=== PATIENT | female | born 1970 | race Caucasian/White ===

== ENCOUNTER → 2019-09-13 14:07 | Outpatient (BNVA) | payer OTHER, SELFPAY | PROVIDERS: Family Provider Internal Medicine; Referring Provider Internal Medicine; Visit Provider Podiatrist Foot & Ankle Surgery | DX: M79.671 Pain in right foot (principal); M79.672 Pain in left foot | CPT/HCPCS: 73630 ==

== ENCOUNTER → 2019-11-06 14:06 | Outpatient (BNVA) | payer OTHER, SELFPAY | PROVIDERS: Family Provider Internal Medicine; PCP Internal Medicine; Visit Provider Internal Medicine Rheumatology | DX: M19.90 Unspecified osteoarthritis, unspecified site (principal); R60.9 Edema, unspecified; Z79.899 Other long term (current) drug therapy; M54.9 Dorsalgia, unspecified; S82.891A Other fracture of right lower leg, initial encounter for closed fracture; X58.XXXA Exposure to other specified factors, initial encounter | CPT/HCPCS: 80076; 82306; 82565; 85025; 85651; 86038; 86140; 86431; 86480; 86704; 86803; 87340; 99204 ==

== ENCOUNTER 2019-11-07 15:06 | Outpatient (CLI) | payer OTHER, SELFPAY ==
--- NOTE | 2019-11-07 15:12 | XRR_ITS ---
PROCEDURE INFORMATION: Exam: XR Lumbosacral Spine, 2 or 3 Views Exam date and time: 11/07/2019 3:25 PM Age: 49 years old Clinical indication: Condition or disease; Other: Inflammatory arthritis; Additional info: Back pain TECHNIQUE: Imaging protocol: XR of the lumbosacral spine, 2 or 3 views. COMPARISON: [facility] Sacrum and Coccyx 12/18/2014 9:10 AM FINDINGS: Vertebrae: Normal. No acute fracture. Normal alignment. Soft tissues: Unremarkable. XR/XR lumbar spine 2-3V* [id number] IMPRESSION: No acute findings.
--- NOTE | 2019-11-07 15:12 | XRR_ITS ---
PROCEDURE INFORMATION: Exam: XR Right Knee Exam date and time: 11/07/2019 3:25 PM Age: 49 years old Clinical indication: Condition or disease; Arthritis; Other: Inflammatory; Bilateral; Additional info: Inflammatory arthritis TECHNIQUE: Imaging protocol: XR Right knee. Views: 3 views. COMPARISON: No relevant prior studies available. FINDINGS: Bones/joints: Negative for acute bony abnormality Soft tissues: Unremarkable XR/XR knee RT 3V* [id number] IMPRESSION: No acute findings.
--- NOTE | 2019-11-07 15:12 | XRR_ITS ---
PROCEDURE INFORMATION: Exam: XR Left Knee Exam date and time: 11/07/2019 3:25 PM Age: 49 years old Clinical indication: Condition or disease; Arthritis; Other: Inflammatory; Bilateral; Additional info: Inflammatory arthritis TECHNIQUE: Imaging protocol: XR Left knee. Views: 3 views. COMPARISON: No relevant prior studies available. FINDINGS: Bones/joints: Negative for acute bony abnormality Soft tissues: Normal. XR/XR knee LT 3V* [id number] IMPRESSION: No acute findings.
--- NOTE | 2019-11-07 15:12 | XRR_ITS ---
PROCEDURE INFORMATION: Exam: XR Left Hand Exam date and time: 11/07/2019 3:25 PM Age: 49 years old Clinical indication: Condition or disease; Arthritis; Other: Inflammatory; Hand; Bilateral; Additional info: Inflammatory arthritis TECHNIQUE: Imaging protocol: XR Left hand. Views: 3 or more views. COMPARISON: No relevant prior studies available. FINDINGS: Bones/joints: Negative for acute bony abnormality Soft tissues: Normal. XR/XR hand LT min 3V* [id number] IMPRESSION: No acute findings.
--- NOTE | 2019-11-07 15:12 | XRR_ITS ---
PROCEDURE INFORMATION: Exam: XR Right Hand Exam date and time: 11/07/2019 3:25 PM Age: 49 years old Clinical indication: Condition or disease; Arthritis; Other: Inflammatory; Hand; Bilateral; Additional info: Inflammatory arthritis TECHNIQUE: Imaging protocol: XR Right hand. Views: 3 or more views. COMPARISON: No relevant prior studies available. FINDINGS: Bones/joints: Negative for acute bony abnormality Soft tissues: Normal. XR/XR hand RT min 3V* [id number] IMPRESSION: No acute findings.
== END 2019-11-07 15:07 | disposition home or self-care (01) ==
LOC: RADWPI 15:10
PROVIDERS: Family Provider Internal Medicine; PCP Internal Medicine; Visit Provider Internal Medicine Rheumatology
DX: M19.90 Unspecified osteoarthritis, unspecified site (principal); M54.5 Low back pain
CPT/HCPCS: 72100; 73130; 73562

== ENCOUNTER → 2020-01-03 15:51 | Outpatient (BNVA) | payer OTHER, SELFPAY | PROVIDERS: Family Provider Internal Medicine; PCP Internal Medicine; Visit Provider Internal Medicine Rheumatology | DX: M06.041 Rheumatoid arthritis without rheumatoid factor, right hand (principal); M06.042 Rheumatoid arthritis without rheumatoid factor, left hand; Z79.899 Other long term (current) drug therapy; R60.9 Edema, unspecified; M85.80 Other specified disorders of bone density and structure, unspecified site; M54.5 Low back pain; G89.29 Other chronic pain | CPT/HCPCS: 99214 ==

== ENCOUNTER → 2020-01-26 10:03 | Outpatient (BNVA) | payer OTHER, SELFPAY | PROVIDERS: Family Provider Internal Medicine; PCP Internal Medicine; Visit Provider Internal Medicine | DX: M06.041 Rheumatoid arthritis without rheumatoid factor, right hand (principal); M06.042 Rheumatoid arthritis without rheumatoid factor, left hand; Z79.899 Other long term (current) drug therapy | CPT/HCPCS: 36415; 80076; 82565; 85025; 85651; 86140; 86235 ==

== ENCOUNTER → 2020-01-30 10:36 | Outpatient (BNVA) | payer OTHER, SELFPAY | PROVIDERS: Family Provider Internal Medicine; PCP Internal Medicine; Referring Provider Internal Medicine Rheumatology; Visit Provider Anesthesiology Pain Medicine | DX: G89.29 Other chronic pain (principal); M79.18 Myalgia, other site; M54.18 Radiculopathy, sacral and sacrococcygeal region; M54.16 Radiculopathy, lumbar region; M25.561 Pain in right knee; M25.562 Pain in left knee; M54.9 Dorsalgia, unspecified; M19.90 Unspecified osteoarthritis, unspecified site; S82.891A Other fracture of right lower leg, initial encounter for closed fracture; X58.XXXA Exposure to other specified factors, initial encounter | CPT/HCPCS: 20553; 99203; 99204; J1030; J3490 ==

== ENCOUNTER 2020-02-13 16:32 | Outpatient (CLI) | payer OTHER, SELFPAY ==
--- NOTE | 2020-02-13 17:12 | MR_ITS ---
WS: [id number] MRI PELVIS without CONTRAST. COMPARISON: None Multiplanar, multisequence imaging is performed without contrast. History: Chronic low back and sacral pain. Signal within the sacrum is normal. There is normal sacrococcygeal alignment. No bone destruction or marrow edema. The overlying soft tissue is normal. No marrow edema along the SI joints. No erosions a re identified. No fusion at the SI joints. No significant narrowing of the hip joints. Soft tissues a re symmetric bilaterally. No muscle atrophy. There is no free fluid in the pelvis. MR/MR pelvis wo con* [id number] IMPRESSION: 1. No significant sacral or SI joint abnormalities. 2. No fracture or marrow edema.
--- NOTE | 2020-02-13 17:30 | MR_ITS ---
WS: [id number] MRI LUMBAR SPINE NONCONTRAST HISTORY: M54.16 Radiculopathy, lumbar region COMPARISON: None available. TECHNIQUE: Sagittal and axial multisequence imaging is submitted. Normal posterior lumbar alignment. No marrow edema or fracture. Very mild degenerative disc disease and desiccation in the lower thoracic and lumbar spine. No signif icant loss of height. Conus terminates normally at L1-2 disc level. L1-L2: Normal. L2-L3: Normal. L3-L4: Mild facet joint arthritis. No significant stenosis. No disc protrusion. L4-L5: Moderate bilateral facet joint arthritis. No significant stenosis. L5-S1: Moderate bilateral facet joint arthritis, LEFT greater than RIGHT. Mild broad-based disc bulgi ng centrally slightly asymmetric to the LEFT. No significant stenosis. MR/MR lumbar spine wo con* [id number] IMPRESSION: 1. Mild to moderate bilateral facet joint arthritis, most significant at L4-5 and L5-S1. 2. No significant central or foraminal stenosis.
== END 2020-02-13 16:33 | disposition home or self-care (01) ==
LOC: RADSHAW 16:37
PROVIDERS: PCP Internal Medicine; Visit Provider Anesthesiology Pain Medicine
DX: M54.16 Radiculopathy, lumbar region (principal); M54.18 Radiculopathy, sacral and sacrococcygeal region; M13.88 Other specified arthritis, other site; M54.5 Low back pain
CPT/HCPCS: 72148; 72195

== ENCOUNTER → 2020-02-22 10:27 | Outpatient (BNVA) | payer OTHER, SELFPAY | PROVIDERS: PCP Internal Medicine; Visit Provider Anesthesiology Pain Medicine | DX: G89.29 Other chronic pain (principal); M54.16 Radiculopathy, lumbar region; M54.9 Dorsalgia, unspecified; M25.561 Pain in right knee; M25.562 Pain in left knee; S82.891A Other fracture of right lower leg, initial encounter for closed fracture; X58.XXXA Exposure to other specified factors, initial encounter; M19.90 Unspecified osteoarthritis, unspecified site | CPT/HCPCS: 99213; 99214 ==

== ENCOUNTER → 2020-03-28 13:02 | Outpatient (BNVA) | payer OTHER, SELFPAY | PROVIDERS: PCP Internal Medicine; Visit Provider Internal Medicine Rheumatology | DX: M06.041 Rheumatoid arthritis without rheumatoid factor, right hand (principal); M06.042 Rheumatoid arthritis without rheumatoid factor, left hand; Z13.820 Encounter for screening for osteoporosis; M85.80 Other specified disorders of bone density and structure, unspecified site; M54.5 Low back pain; G89.29 Other chronic pain; M54.16 Radiculopathy, lumbar region; Z79.899 Other long term (current) drug therapy | CPT/HCPCS: 99214 ==

== ENCOUNTER 2020-04-09 15:46 | Outpatient (CLI) | payer OTHER, SELFPAY ==
--- NOTE | 2020-04-09 08:34 | XR_ITS ---
WS: [id number] SCREENING DEXA SCAN SCOUPY CLINICAL INFORMATION: M85.80 - Other specified disorders of bone density and struc COMPARISON: None. FINDINGS: The L1-L4 bone mineral density measures 1.0. This corresponds to a T score score of -1.1 and Z score of -1.7. Left femoral neck bone mineral density measures 1.0. This corresponds to a T score of 0.0 and Z score of -0.3. Right femoral neck bone mineral density measures 1.1. This corresponds to a T score 0.4of and Z score of 0.1. Mean femoral neck bone mineral density measures 1.0. This corresponds to a T score of 0.2 and Z score of -0.1. XR/XR DEXA axial skeleton* [id number] IMPRESSION: Osteopenia of the lumbar spine. Normal bone mineralization in the femoral necks . Patient's FRAX calculated 10 year probability for major osteoporotic fracture i s 9.4 % and osteoporotic hip fracture is 0.5%.
== END 2020-04-09 15:47 | disposition home or self-care (01) ==
LOC: RADWPI 15:48
PROVIDERS: PCP Internal Medicine; Visit Provider Internal Medicine Rheumatology
DX: M85.80 Other specified disorders of bone density and structure, unspecified site (principal)
CPT/HCPCS: 77080

== ENCOUNTER → 2020-05-01 14:58 | Outpatient (BNVA) | payer OTHER, SELFPAY | PROVIDERS: PCP Internal Medicine; Visit Provider Internal Medicine Rheumatology | DX: Z79.899 Other long term (current) drug therapy (principal) | CPT/HCPCS: 36415; 80076; 82565; 85025; 85651; 86140 ==

== ENCOUNTER → 2020-05-19 12:23 | Outpatient (BNVA) | payer OTHER, SELFPAY | PROVIDERS: PCP Internal Medicine; Visit Provider Nurse Practitioner | DX: Z20.822 Contact with and (suspected) exposure to COVID-19 (principal); R05 Cough | CPT/HCPCS: 87400; 87635 ==

== ENCOUNTER → 2020-08-20 14:58 | Outpatient (BNVA) | payer OTHER, SELFPAY | PROVIDERS: Visit Provider Internal Medicine Rheumatology | DX: M06.041 Rheumatoid arthritis without rheumatoid factor, right hand (principal); M06.042 Rheumatoid arthritis without rheumatoid factor, left hand; Z79.899 Other long term (current) drug therapy; G89.29 Other chronic pain; M54.5 Low back pain | CPT/HCPCS: 99214 ==

== ENCOUNTER → 2020-11-21 15:30 | Outpatient (BNVA) | payer OTHER, SELFPAY | PROVIDERS: PCP Clinical Nurse Specialist Adult Health; Visit Provider Internal Medicine Rheumatology | DX: M06.041 Rheumatoid arthritis without rheumatoid factor, right hand (principal); M06.042 Rheumatoid arthritis without rheumatoid factor, left hand; Z79.899 Other long term (current) drug therapy; M54.5 Low back pain; G89.29 Other chronic pain; Z71.89 Other specified counseling | CPT/HCPCS: 99214 ==

== ENCOUNTER → 2021-01-06 14:49 | Outpatient (BNVA) | payer OTHER, SELFPAY | PROVIDERS: PCP Clinical Nurse Specialist Adult Health; Visit Provider Internal Medicine | DX: E11.9 Type 2 diabetes mellitus without complications (principal); E03.9 Hypothyroidism, unspecified | CPT/HCPCS: 99204 ==

== ENCOUNTER → 2021-05-01 08:40 | Outpatient (BNVA) | payer OTHER, SELFPAY | PROVIDERS: PCP Clinical Nurse Specialist Adult Health; Visit Provider Family Medicine | DX: Z20.828 Contact with and (suspected) exposure to other viral communicable diseases (principal) | CPT/HCPCS: 87635 ==

== ENCOUNTER → 2021-09-08 14:48 | Outpatient (BNVA) | payer OTHER, SELFPAY | PROVIDERS: Visit Provider Family Medicine | DX: Z20.822 Contact with and (suspected) exposure to COVID-19 (principal) | CPT/HCPCS: 87635 ==

== ENCOUNTER 2021-10-16 09:50 | Outpatient (CLI) | payer OTHER, SELFPAY ==
[2021-10-16 11:14] LABS: Basophils # 0.1 10^3/uL (0.0-0.1); Basophils % 1.1 %; Eosinophils # 0.2 10^3/uL (0.0-0.8); Eosinophils % 2.6 %; Hematocrit 41.3 % (37.0-47.0); Hemoglobin 13.8 g/dL (11.5-15.3); Lymphocytes # 2.3 10^3/uL (0.8-4.8); Mean Corpuscular HGB Conc 33.4 g/dL (30.0-36.0); Mean Corpuscular Hemoglobin 28.9 pg (28.0-34.0); Mean Corpuscular Volume 86.4 fl (81-99); Mean Platelet Volume 9.4 fL (7.4-10.4); Monocytes # 0.8 10^3/uL (0.2-0.9); Monocytes % 10.3 %; Neutrophils # 4.08 10^3/uL (1.8-7.7); Neutrophils % 54.7 %; Nucleated Red Blood Cells % 0 %; Platelet Count 328 10^3/cmm (130-400); Red Blood Count 4.78 10^6/uL (4.1-5.3); Red Cell Distribution Width 12.9 % (12.1-15.1); White Blood Count 7.5 10^3/uL (4.0-10.0)
[2021-10-16 11:28] LABS: Alanine Aminotransferase 29 U/L (0-33); Albumin Level 4.7 g/dL (3.5-5.2); Alkaline Phosphatase 89 IU/L (35-105); Anion Gap 16.8 (5-19); Aspartate Amino Transferase 33 U/L (0-32); Blood Urea Nitrogen 15 mg/dL (6-20); C Reactive Protein 34.2 mg/L (0.0-4.9); Calcium 10.7 mg/dL (8.5-10.5); Carbon Dioxide 26 mmol/L (22-29); Chloride 100 mmol/L (98-107); Globulin 3.3 g/dL (1.3-4.6); Glomerular Filtration Rate 87.5 mL/min (90-130); Glucose 111 mg/dL (65-115); Osmolality Calculated 288 mOsm/kg (285-295); Potassium 4.8 mmol/L (3.5-5.1); Sodium 138 mmol/L (136-145); Total Bilirubin 0.3 mg/dL (0.15-1.2)
[2021-10-16 11:45] LABS: Hepatitis A Antibody IgM Non-Reactive (Nonreactive); Hepatitis B Core IgM Non-Reactive (Nonreactive); Hepatitis B Surface Antigen Non-Reactive (Nonreactive); Hepatitis C Virus Antibody Non-Reactive (Nonreactive)
[2021-10-17 13:12] LABS: Erythrocyte Sedimentation Rate 17 mm/hr (0-15)
== END 2021-10-16 09:51 | disposition home or self-care (01) ==
LOC: LAB 09:54
PROVIDERS: Visit Provider Clinical Nurse Specialist Adult Health
DX: A09 Infectious gastroenteritis and colitis, unspecified (principal)
CPT/HCPCS: 80053; 80074; 85025; 85651; 86140

== ENCOUNTER → 2022-01-20 10:07 | Outpatient (BNVA) | payer OTHER, SELFPAY | PROVIDERS: PCP Clinical Nurse Specialist Adult Health; Visit Provider Clinical Nurse Specialist Adult Health | DX: M06.041 Rheumatoid arthritis without rheumatoid factor, right hand (principal); M06.042 Rheumatoid arthritis without rheumatoid factor, left hand; Z79.899 Other long term (current) drug therapy | CPT/HCPCS: 80076; 82565; 85025; 86140 ==

== ENCOUNTER → 2022-03-23 16:07 | Outpatient (BNVA) | payer OTHER, SELFPAY | PROVIDERS: PCP Clinical Nurse Specialist Adult Health; Visit Provider Internal Medicine Rheumatology | DX: M06.041 Rheumatoid arthritis without rheumatoid factor, right hand (principal); M06.042 Rheumatoid arthritis without rheumatoid factor, left hand; Z79.899 Other long term (current) drug therapy; M54.12 Radiculopathy, cervical region; M54.10 Radiculopathy, site unspecified; Z71.89 Other specified counseling | CPT/HCPCS: 72040 ==

== ENCOUNTER → 2022-07-23 11:31 | Outpatient (BNVA) | payer OTHER, SELFPAY | PROVIDERS: PCP Clinical Nurse Specialist Adult Health; Visit Provider Internal Medicine | DX: E07.9 Disorder of thyroid, unspecified (principal); E11.9 Type 2 diabetes mellitus without complications; E03.9 Hypothyroidism, unspecified | CPT/HCPCS: 36415; 80053; 80061; 82044; 83036; 83721; 84443; 84480 ==

== ENCOUNTER → 2022-08-25 09:02 | Outpatient (BNVA) | payer OTHER, SELFPAY | PROVIDERS: PCP Clinical Nurse Specialist Adult Health; Visit Provider Clinical Nurse Specialist Adult Health | DX: E03.9 Hypothyroidism, unspecified (principal); E11.9 Type 2 diabetes mellitus without complications | CPT/HCPCS: 82607 ==

== ENCOUNTER → 2022-10-26 13:01 | Outpatient (BNVA) | payer OTHER, SELFPAY | PROVIDERS: PCP Clinical Nurse Specialist Adult Health; Visit Provider Clinical Nurse Specialist Adult Health | DX: E07.9 Disorder of thyroid, unspecified (principal); E11.9 Type 2 diabetes mellitus without complications; E03.9 Hypothyroidism, unspecified; M06.041 Rheumatoid arthritis without rheumatoid factor, right hand; M06.042 Rheumatoid arthritis without rheumatoid factor, left hand; Z79.899 Other long term (current) drug therapy | CPT/HCPCS: 80053; 80061; 82043; 82248; 83036; 84439; 84443; 84480; 85025; 86140 ==

== ENCOUNTER 2022-11-05 10:26 | Outpatient (CLI) | payer OTHER, SELFPAY ==
--- NOTE | 2022-11-05 | XR_ITS ---
WS: [id number] Exam: XR hand RT 2V [id number] Date/Time of Exam: 11/05/2022 10:48 AM Reason For Exam: DECREASED ROM, HAND PAIN No acute fracture or dislocation. Soft tissues are unremarkable. Joint structures are relatively well maintained. XR/XR hand RT 2V [id number] IMPRESSION: 1. Negative right hand.
--- NOTE | 2022-11-05 | XR_ITS ---
WS: [id number] Exam: XR lumbar spine 2-3V* [id number] Date/Time of Exam: 11/05/2022 10:48 AM Reason For Exam: LUMBAR PAIN Comparison 11/07/2019. No fracture or dislocation. Disc spaces are preserved. Posterior elements are intact. There is slight dextroscoliosis which is probably positional. Calcification superimposes the left kidney and may rep resent a renal calculus. XR/XR lumbar spine 2-3V* [id number] IMPRESSION: 1. No fracture or malalignment. 2. Slight dextroscoliosis that is probably positional. 3. 1 cm calcification superimposes the left renal silhouette and might represen t a renal stone.
== END 2022-11-05 10:27 | disposition home or self-care (01) ==
LOC: RAD 10:26
PROVIDERS: PCP Clinical Nurse Specialist Adult Health; Visit Provider Dermatology
DX: M25.641 Stiffness of right hand, not elsewhere classified (principal); M79.641 Pain in right hand; M54.50 Low back pain, unspecified; M41.86 Other forms of scoliosis, lumbar region
CPT/HCPCS: 72100; 73120

== ENCOUNTER 2025-01-02 12:45 | Emergency (ER) | payer OTHER, SELFPAY ==
--- OUTSIDE RECORDS SUMMARY | 2024-12-27 11:05 | XMS_ITS | Encounter Summary ---
Author Organization [facility] Address [address] [place] [address] Care Team Providers Care Head Of Physics Name Role Phone Italo Torres MD Primary Care Provider [phone] Reason for Visit * Reason Comments Nurse Only Encounter Details Date Type Department Care Team (Latest Contact Info) Description 12/27/2024 11:05 AM CDT Procedure visit [facility] Family Medicine [place] [address] [facility] [address] [place] [address] Rheumatoid arthritis involving multiple sites, unspecified whether rheumatoid factor present (CMS/[facility]) (Primary Dx); Fibromyalgia; [place] Social History Tobacco Use Types Packs/Day Years Used Date Smoking Tobacco: Never Smokeless Tobacco: Never Alcohol Use Standard Drinks/Week Comments Not Currently 0 (1 standard drink = 0.6 oz pur e alcohol) Comments No Sex and Gender Information Value Date Recorded Sex Assigned at Not on file 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 Gender Identity Not on file Sexual Orientation Not on file documented as of this encounter Last Filed Vital Signs Vital Sign Reading Time Taken Comments Blood Pressure 118/64 12/27/2024 11:34 AM CDT Pulse - - Temperature - - Respiratory Rate - - Oxygen Saturation - - Inhaled Oxygen Concentration - - Weight 76.7 kg (169 lb) 12/27/2024 11:34 AM CDT Height - - Body Mass Index 27.28 11/21/2024 11:45 AM CDT documented in this encounter Plan of Treatment Upcoming Encounters Date Type Department Care Team (Late st Contact Info) Description 01/11/2025 10:40 AM CDT Office Visit [facility] Rheumatology- [place] [address] [address] Isrrael Sebastian MD [address] [place] [address] 05/24/2025 11:00 AM PRODUCT SAFETY LEAD Office Visit [facility] [address] [address] Italo Torres MD [address] [place] [address] documented as of this encounter Procedures Procedure Name Priority Date/Time Associated Diagnosis Comments CBC WITH DIFFERENTIAL Routine 12/27/2024 11:20 AM CDT Rheumatoid arthritis involving multiple sites, unspecified whether rheumatoid factor present (CMS/HCC) Fibromyalgia [place] CREATININE Routine 12/27/2024 11:20 AM CDT Rheumatoid arthritis involving multiple sites, unspecified whether rheumatoid factor present (CMS/HCC) Fibromyalgia HEPATIC FUNCTION PANEL Routine 12/27/2024 11:20 AM CDT Rheumatoid arthritis involving multiple sites, unspecified whether rheumatoid factor present (CMS/HCC) Fibromyalgia documented in this encounter Results * (ABNORMAL) CREATININE (12/27/2024 11:20 AM CDT) CREATININE 1.25(H) 0.50 - 1.03 mg/dL [facility] GFR 51(L) > OR = 60 mL/min/1.7 3m2 [facility] Comment: Test Performed at: [facility] [address] [address] Wes Colvin MD Blood 12/27/2024 11:2 0 AM CDT 12/28/2024 4:40 AM CDT Isrrael Sebastian MD CHEMISTRY OR DERABLES Final Result [facility] [phone] [place] [address] [facility] [place] [address] * HEPATIC FUNCTION PANEL (12/27/2024 11:20 AM CDT) Pathologist [facility] TOTAL PROTEIN 7.3 6.1 - 8.1 g/dL [facility] ALBUMIN 4.9 3.6 - 5.1 g/dL [facility] GLOBULIN 2.4 1.9 - 3.7 g/dL (calc) [facility] ALBUMIN/GLOBULIN RATIO 2.0 1.0 - 2.5 (calc) [facility] BILIRUBIN TOTAL 0.4 0.2 - 1.2 mg/dL [facility] BILIRUBIN DIRECT 0.1 < OR = 0.2 mg/dL [facility] BILIRUBIN INDIRECT 0.3 0.2 - 1.2 mg/dL (calc) [facility] ALKALINE PHOSPHATASE 39 37 - 153 U/L [facility] AST 18 10 - 35 U/L [facility] ALT 13 6 - 29 U/L [facility] Comment: Test Performed at: [employer] [address] [place] [address] [place] [address] Wes Colvin MD Blood 12/27/2024 11:2 0 AM CDT 12/28/2024 4:40 AM CDT Isrrael Sebastian MD CHEMISTRY OR DERABLES Final Result [facility] [phone] [place] [address] [facility] [place] [address] * (ABNORMAL) CBC WITH DIFFERENTIAL (12/27/2024 11:20 AM CDT) Pathologist [facility] WBC 4.8 3.8 - 10.8 Thousand/u L [facility] RBC 4.32 3.80 - 5.10 Million/uL [facility] HEMOGLOBIN 12.5 11.7 - 15.5 g/dL [facility] HEMATOCRIT 39.9 35.0 - 45.0 % [facility] MCV 92.4 80.0 - 100.0 fL [facility] MCH 28.9 27.0 - 33.0 pg [facility] MCHC 31.3(L) 32.0 - 36.0 g/dL [facility] Comment: For adults, a slight decrease in the calculated MCHC value (in the range of 30 to 32 g/dL) is most likely not clinically significant; however, it should be interpreted with caution in correlation with other red cell parameters and the patient's clinical condition. RDW 12.1 11.0 - 15.0 % [facility] PLATELETS 373 140 - 400 Thousand/u L [facility] MPV 8.9 7.5 - 12.5 fL [facility] NEUTROPHIL ABSOLUTE 2,323 1,500 - 7,800 cells/uL [facility] LYMPHOCYTE ABSOLUTE 1,776 850 - 3,900 cells/uL [facility] MONOCYTE ABSOLUTE 370 200 - 950 cells/uL [facility] EOSINOPHIL ABSOLUTE 211 15 - 500 cells/uL [facility] BASOPHILS ABSOLUTE 120 0 - 200 cells/uL [facility] NEUTROPHIL 48.4 % [facility] LYMPHOCYTES 37.0 % [facility] MONOCYTE 7.7 % [facility] EOSINOPHILS 4.4 % [facility] BASOPHILS 2.5 % [facility] Comment: Test Performed at: [facility] [address] [address] [address] Wes Colvin MD Blood 12/27/2024 11:2 0 AM CDT 12/28/2024 4:40 AM CDT us Isrrael Sebastian MD HEMATOLOGY O RDERABLES Final Result [facility] [phone] [place] [address] [address] [address] documented in this encounter Visit Diagnoses Diagnosis Rheumatoid arthritis involving multiple sites, unspecified whether rheumatoid factor present ([facility])- Primary Fibromyalgia Mylagia and myositis, unspecified [place] Absence of menstruation documented in this encounter Care Teams Head Of Physics Relationship Specialty Start Date End Date Italo Torres MD [address] [address] PCP - General Family Practice 02/16/23 documented as of this encounter
[2025-01-02 12:59] VITALS: BP 134/90; PULSE 83; RESP 16; TEMP 37; O2SAT 100; BMI 25.8
--- OUTSIDE RECORDS SUMMARY | 2025-01-02 13:29 | XMS_ITS | Encounter Summary ---
Author Organization [facility] Address [address] [place] [address] Care Team Providers Care Slate Splitting Supervisor Name Role Phone Neptali Resendez DO Primary Care Provide r Encounter Details Date Type Department Care Team (Latest Contact Info) Description 07/16/2004 Outpatient Historical [facility] Pulmonology-[facility] [place] [address] [place] [address] Panchito Nieto MD NO ADDRESS ON FILE ASTHMA UNSPECIFIED (Primary Dx) Social History Tobacco Use Types Packs/Day Years Used Date Smoking Tobacco: Never Assessed Comments Unknown Sex and Gender Information Value Date Recorded Sex Assigned at Not on file 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
--- OUTSIDE RECORDS SUMMARY | 2025-01-02 13:29 | XMS_ITS | Encounter Summary ---
Author Organization [facility] Address [address] [place] [address] Care Team Providers Care Residential Aide Name Role Phone Neptali Resendez DO Primary Care Provide r Encounter Details Date Type Department Care Team (Latest Contact Info) Description 05/23/2002 Outpatient Historical [facility] Dermatology- [facility] [place] [address] [place] [address] Abel Salazar MD NO ADDRESS ON FILE ROSACEA (Primary Dx); Benign cyril skin trunk Social History Tobacco Use Types Packs/Day Years Used Date Smoking Tobacco: Never Assessed Comments Unknown Sex and Gender Information Value Date Recorded Sex Assigned at Not on file 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
--- OUTSIDE RECORDS SUMMARY | 2025-01-02 13:29 | XMS_ITS | Encounter Summary ---
Author Organization [facility] [facility] Address [address] [place] [address] Care Team Providers Care Cardiology Fellow Name Role Phone Neptali Resendez DO Primary Care Provide r Encounter Details Date Type Department Care Team (Latest Contact Info) Description 05/23/2002 Outpatient Historical [facility] [facility] [address] [place] [address] [place] [phone] Abel Salazar MD NO ADDRESS ON FILE BENIGN OMARI SKIN TRUNK (Primary Dx) Social History Tobacco Use Types Packs/Day Years Used Date Smoking Tobacco: Never Assessed Comments Unknown Sex and Gender Information Value Date Recorded Sex Assigned at Not on file 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
--- OUTSIDE RECORDS SUMMARY | 2025-01-02 13:29 | XMS_ITS | Encounter Summary ---
Author Organization [facility] Address [address] [place] [address] Care Team Providers Care Rice Milling Supervisor Name Role Phone Italo Torres MD Primary Care Provider +1 [phone] Reason for Visit * Reason Onset Date Comments Medication Refill 12/27/2024 Encounter Details Date Type Department Care Team (Late Contact Info) Description 12/27/2024 Refill [facility] Family Medicine [address] [address] Italo Torres MD [address] [address] Severe obesity (BMI 35.0-39.9) with comorbidity (CMS/HCC) Social History Tobacco Use Types Packs/Day Years Used Date Smoking Tobacco: Never Smokeless Tobacco: Never Alcohol Use Standard Drinks/Week Comments Not Currently 0 (1 standard drink = 0.6 oz pur e alcohol) Comments No Sex and Gender Information Value Date Recorded Sex Assigned at Not on file 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 Gender Identity Not on file Sexual Orientation Not on file documented as of this encounter Plan of Treatment Upcoming Encounters Date Type Department Care Team (Late Contact Info) Description 01/11/2025 10:40 AM CDT Office Visit [facility] Rheumatology- [place] Charli [place] [address] [place] [address] Isrrael Sebastian MD [address] [place] [address] 05/24/2025 11:00 AM AIRCRAFT BODY REPAIRER [facility] [address] [address] Italo Torres MD [address] [address] documented as of this encounter Visit Diagnoses Diagnosis Severe obesity (BMI 35.0-39.9) with comorbidity (CMS/HCC) documented in this encounter Care Teams Rice Milling Supervisor Relationship Specialty Start Date End Date Italo Torres MD [address] [address] PCP - General Family Practice 02/16/23 documented as of this encounter
--- OUTSIDE RECORDS SUMMARY | 2025-01-02 13:29 | XMS_ITS | Encounter Summary ---
Author Organization [facility] Address [address] [place] [address] Care Team Providers Care Baker Second Name Role Phone Italo Torres MD Primary Care Provider [phone] [phone] Encounter Details Date Type Department Care Team (Late Contact Info) Description 12/29/2024 Results Follow-Up [facility] [place] Charli Macias [address] [place] [address] Isrrael Sebastian MD [address] [place] [address] HEPATIC FUNCTION PANEL Social History Tobacco Use Types Packs/Day Years Used Date Smoking Tobacco: Never Smokeless Tobacco: Never Alcohol Use Standard Drinks/Week Comments Not Currently 0 (1 standard drink = 0.6 oz pur e alcohol) Comments No Sex and Gender Information Value Date Recorded Sex Assigned at Not on file 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 Gender Identity Not on file Sexual Orientation Not on file documented as of this encounter Plan of Treatment Upcoming Encounters Date Type Department Care Team (Late Contact Info) Description 01/11/2025 10:40 AM CDT Office Visit [facility] Rheumatology- [place] Charli Macias [address] [place] [address] Isrrael Sebastian MD [address] [place] [address] 05/24/2025 11:00 AM AUTOMATIC NAILING MACHINE OPERATOR Office Visit [facility] [address] [address] Italo Torres MD [address] [address] documented as of this encounter Visit Diagnoses Not on filedocumented in this encounter Care Teams Baker Second Relationship Specialty Start Date End Date Italo Torres MD [address] [address] PCP - General Family Practice 02/16/23 documented as of this encounter
--- OUTSIDE RECORDS SUMMARY | 2025-01-02 13:30 | XMS_ITS | Encounter Summary ---
Author Organization [facility] Address [address] [place] [address] Care Team Providers Care Administrative And Program Specialist Name Role Phone Neptali Resendez DO Primary Care Provide r Encounter Details Date Type Department Care Team (Latest Contact Info) Description 02/20/2005 Outpatient Historical [facility] Pulmonology-[facility] [place] [address] [place] [address] Panchito Nieto MD NO ADDRESS ON FILE ASTHMA UNSPECIFIED (Primary Dx) Social History Tobacco Use Types Packs/Day Years Used Date Smoking Tobacco: Never Assessed Comments Unknown Sex and Gender Information Value Date Recorded Sex Assigned at Not on file 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
--- OUTSIDE RECORDS SUMMARY | 2025-01-02 13:30 | XMS_ITS | Clinical Summary ---
Author Organization [facility] Address [address] [place] [address] Care Team Providers Care Non Linear Editor Name Role Phone Neptali Resendez DO Primary Care Provide r Allergies Active Allergy Reactions Criticality Noted Date Comments Sulfa (Sulfonamide Antibiotics) Rash Low 04/2013 Medications escitalopram oxalate (LEXAPRO) 10 mg tablet Take 10 mg by mouth daily. Active levothyroxine 50 mcg Oral tablet Take 50 mcg by mouth daily case packer and sealer. Active conjugated estrogens (PREMARIN) 1.25 mg tablet Take 1.25 mg by mouth daily. Active atorvastatin (LIPITOR) 20 mg tablet Take 20 mg by mouth Daily LATE. Active aspirin (TWILA CHEWABLE) 81 mg Tablet, Chewable Take 81 mg by mouth daily. Active Azelaic Acid (FINACEA) 15 % GelIndications: Adult acne Apply to affected area 2 times daily. Apply bid to face for adult acne 50 Gram 12 03/19/2014 Active Active Problems No known active problems Social History Tobacco Use Types Packs/Day Years Used Date Smoking Tobacco: Never Smokeless Tobacco: Never Alcohol Use Standard Drinks/Week Comments Not Asked 0 (1 standard drink = 0.6 oz pur e alcohol) Comments Unknown Sex and Gender Information Value Date Recorded Sex Assigned at Not on file Legal Sex Female 6:23 AM [employer] Gender Identity Not on file Sexual Orientation Not on file Last Filed Vital Signs Vital Sign Reading Time Taken Comments Blood Pressure 134/84 03/19/2014 2:00 PM [employer] Pulse 95 03/19/2014 2:00 PM [employer] Temperature - - Respiratory Rate - - Oxygen Saturation - - Inhaled Oxygen Concentration - - Weight 112.5 kg (248 lb) 03/19/2014 2:00 PM [employer] Height 167.6 cm (5' 6 ) 03/19/2014 2:00 PM [employer] Body Mass Index 40.03 03/19/2014 2:00 PM [employer] Plan of Treatment Health Maintenance Due Date Last Done Comments DTAP/TDAP/TD VACCINES (1 - Tdap) 02/15/1987 HEPATITIS B VACCINES (1 of 3 - 19+ 3-dose series) 01/19 HPV/Cotest (21-29) 02/15/1989 CERVICAL CANCER SCREENING 02/15/1998 HPV/Cotest (30-65) 02/15/1998 PAP SMEAR 02/15/1998 BREAST CANCER SCREENING 2008 COLORECTAL SCREENING 02/15/2013 Colorectal Cancer Screening 02/15/2013 FIT-DNA Q 3 years 02/15/2013 FIT/FOBT Q 1 year 02/15/2013 Flex Sig/CT Colonography Q 5 years 02/15/2013 ZOSTER VACCINE (1 of 2) 02/15/2018 INFLUENZA VACCINE (#1) 2024 Insurance [employer] Care Teams Non Linear Editor Relationship Specialty Start Date End Date Neptali Resendez DO [address] [place] [address] PCP - General Internal Medicine 03/19/14
--- OUTSIDE RECORDS SUMMARY | 2025-01-02 13:30 | XMS_ITS | Clinical Summary ---
Author Organization [facility] Address [address] [place]: [place] [address] Care Team Providers Care Post Adoption Coordinator Name Role Phone Italo Torres MD Primary Care Provider [phone] Allergies Active Allergy Reactions Criticality Noted Date Comments Hymenoptera Allergenic Extract Anaphylaxis High 01/19 [id number]-Xpe-Csj Reductase Inhibitors Muscle Pain Low 2023 Sulfa (Sulfonamide Antibiotics) Rash Low 12/04/2013 Medications diclofenac sodium (VOLTAREN) 1 % gel Apply 4 Grams to affected area 4 times daily. Active acetaminophen (TYLENOL ARTHRITIS) 650 mg Extended Release tablet Take 650 mg by mouth every 6 hours as needed for Pain. Active aspirin (ECOTRIN EC) 81 mg Tablet, Delayed Release (E.C.) Take 81 mg by mouth daily. Active predniSONE (DELTASONE) 5 mg tablet Take 5 mg by mouth see administration instructions. Daily prn for joint pain flares Active dexAMETHasone (DECADRON) 1 mg Tablet Take 1 Tablet (1 mg) by mouth one time for 1 dose. 1 Tablet 024 Active Auvi-Q 0.3 mg/0.3 mL Auto-Injector Inject 0.3 mL (0.3 mg) by intramuscular injection 1 time daily as needed for Anaphylaxis. 1 Each 2 024 Active tretinoin (RETIN-A) 0.025 % Cream 024 Active Syringe with Needle, Disp, (BD Tuberculin Syringe) 1 mL 25 gauge x 5/8 Syringe Use every 30 days for B12 injection 1 Each 025 Active sertraline (ZOLOFT) 50 mg tabletIndications:R ecurrent major depressive disorder, in partial remission Take 1 tablet by mouth once daily 100 Tablet 1 Active fenofibrate nanocrystallized (TRICOR) 48 mg tabletIndications:M ixed hyperlipidemia Take 1 tablet by mouth once daily 100 Tablet 1 Active metFORMIN (GLUCOPHAGE XR) 500 mg Extended Release 24 hour tablet TAKE 2 TABLETS BY MOUTH ONCE DAILY WITH SUPPER 200 Tablet 2 Active predniSONE (DELTASONE) 5 mg tablet Take 1 Tablet (5 mg) by mouth 1 time daily as needed for Pain (For inflammatory joint pain). 90 Tablet 025 2024 Active leflunomide (ARAVA) 20 mg TabletIndications:S eronegative rheumatoid arthritis of both hands (CMS/HCC) Take 1 tablet by mouth once daily 100 Tablet 2 Active levothyroxine 88 mcg tabletIndications:H ashimoto's disease,Acquired hypothyroidism Take 1 Tablet (88 mcg) by mouth daily in the morning. 90 Tablet 3 Active pregabalin (LYRICA) 75 mg CapsuleIndications: Fibromyalgia Take 1 Capsule (75 mg) by mouth daily at bedtime. 30 Capsule Active Ozempic 2 mg/dose (8 mg/3 mL) Pen InjectorIndications :Type 2 diabetes mellitus with diabetic polyneuropathy, without long-term current use of insulin ([facility]) Inject 2 mg by subcutaneous injection every 7 days. 3 mL Active spironolactone (ALDACTONE) 100 mg tabletIndications:H TN (hypertension), benign Take 2 Tablets (200 mg) by mouth daily. 180 Tablet 025 Active cyanocobalamin (VITAMIN B-12) 1,000 mcg/mL Solution Inject 1 mL (1,000 mcg) by intramuscular injection every 30 days. 1 mL 025 Active losartan (COZAAR) 25 mg tabletIndications:T ype 2 diabetes mellitus with microalbuminuria, without long-term current use of insulin ([facility]) Take 1 Tablet (25 mg) by mouth daily. 100 Tablet 3 025 Active phentermine (ADIPEX P) 37.5 mg tabletIndications:S evere obesity (BMI 35.0-39.9) with comorbidity (CMS/HCC) Take 1 Tablet (37.5 mg) by mouth daily before breakfast. 30 Tablet 025 Active losartan (COZAAR) 25 mg tabletIndications:T ype 2 diabetes mellitus with microalbuminuria, without long-term current use of insulin (CMS/HCC) Take 1 Tablet (25 mg) by mouth daily. 100 Tablet 2 024 2024 Disconti nued(Reo rder) phentermine (ADIPEX P) 37.5 mg tabletIndications:S evere obesity (BMI 35.0-39.9) with comorbidity (CMS/HCC) Take 1 Tablet (37.5 mg) by mouth daily before breakfast. 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 Cervical radiculopathy 2023 Lumbar radiculopathy 2023 Type 2 diabetes mellitus wit h diabetic polyneuropathy, without long-term current use of insulin 2023 Diabetic peripheral neuropat hy associated with type 2 diabetes mellitus 2023 High risk medication use 2023 Hypothyroid 2023 Inflammatory arthritis 2023 Osteopenia 2023 Seronegative rheumatoid arthritis of both hands 2023 History of anaphylaxis 2023 Vitamin B 12 deficiency 2023 Recurrent major depressive disorder, in partial remission 2023 Mixed hyperlipidemia 2023 Statin myopathy 2023 HTN (hypertension), benign 2023 Resolved Problems Problem Noted Date Diagnosed Date Resolved Date Anaphylaxis 2023 2023 Severe obesity (BMI 35.0-39. 9) with comorbidity 2023 05/16/2024 Encounters Date Type Department Care Team Description 12/29/2024 Results [facility] [address] [place] [address] Isrrael Sebastian MD HEPATIC FUNCTION PANEL 12/27/2024 11:05 AM CDT Procedure visit [address] [place] [address] Rheumatoid arthritis involving multiple sites, unspecified whether rheumatoid factor present ([facility]) (Primary Dx); Fibromyalgia; [place] 12/27/[address] [place] [address] Italo Torres MD Severe obesity (BMI 35.0-39.9) with comorbidity ([facility]) 12/21/[address] [place] [address] Italo Torres MD Type 2 diabetes mellitus with microalbuminuria, without long-term current use of insulin ([facility]) 12/21/2024 Orders Only [address] [place] [address] Italo Torres MD 12/15/2024 Orders Only [address] [phone] Lindsay Stacy RN 12/[facility] [facility] [address] [place] [address] Italo Torres MD 12/12/2024 External Device Data ST[facility] ABSTRACTION Provider, Abstract 11/28/2024 Results Follow-Up [address] [phone] Italo Torres MD PROTEIN ELECTROPHORESIS W/REFLEX,SERUM, BASIC METABOLIC PANEL, CBC WITH DIFFERENTIAL 11/22/[address] [facility] [address] [place] [address] Italo Torres MD 11/21/2024 11:40 AM CDT Office Visit [address] [address] Italo Torres MD Type 2 diabetes mellitus with diabetic polyneuropathy, without long-term current use of insulin ([facility]) (Primary Dx); Severe obesity (BMI 35.0-39.9) with comorbidity ([facility]); Seronegative rheumatoid arthritis of both hands ([facility]); Type 2 diabetes mellitus with microalbuminuria, without long-term current use of insulin ([facility]); Fibromyalgia; Anemia, unspecified type; Dior's disease; Acquired hypothyroidism; HTN (hypertension), benign; Breast cancer screening by mammogram 11/19/[address] [address] Italo Torres MD HTN (hypertension), benign; Acquired hypothyroidism 11/13/2024 Orders Only Initial Department [address] [place] [address] Dr CROWE: [place] [address] Provider, Historical 11/10/[address] [address] Italo Torres MD Patient Communication 11/09/2024 Orders Only [address] [address] Italo Torres MD Anemia, unspecified type (Primary Dx) 11/09/[address] [address] Italo Torres MD Needs Orders Written 11/08/[address] [address] Italo Torres MD Patient Communication 11/01/2024 External Device Data [facility] ABSTRACTION Provider, Abstract 10/31/2024 External Device Data [facility] [place]STRACTION Provider, Abstract 10/31/[address] [phone] Italo Torres MD Type 2 diabetes mellitus with diabetic polyneuropathy, without long-term current use of insulin ([facility]) 10/26/2024 Results Follow-Up [address] [phone] Umm Mcguire FNP URINE CULTURE, MICROALBUMIN/CREATININE RATIO, RANDOM UR, TSH, Additional followed-up results: 5 10/23/2024 3:20 PM CDT Procedure visit [address] [phone] Umm Mcguire FNP Hematuria, unspecified type (Primary Dx); Type 2 diabetes mellitus with diabetic polyneuropathy, without long-term current use of insulin ([facility]); Urinary tract infection with hematuria, site unspecified 10/23/[address] [phone] Italo Torres MD Severe obesity (BMI 35.0-39.9) with comorbidity ([facility]) 10/23/[address] [address] Italo Torres MD Labs Only 10/17/[address] [address] Italo Torres MD Seronegative rheumatoid arthritis of both hands ([facility]) 10/11/2024 10:40 AM CDT Office Visit [facility] Rhe[facility]- [facility] [address] [phone] Isrrael Sebastian MD Rheumatoid arthritis involving multiple sites, unspecified whether rheumatoid factor present ([facility]) (Primary Dx); Long-term use of leflunomide therapy; Encounter for monitoring leflunomide therapy; 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; High risk medication use 10/07/2024 Refill [facility] [place] [address] [place] [address] Italo Torres MD Type 2 diabetes mellitus with diabetic polyneuropathy, without long-term current use of insulin ([facility]/HCC) 10/04/2024 Results Follow-Up [facility] Rheumatology- [facility] [address] [place] [address] Isrrael Sebastian MD HEPATIC FUNCTION PANEL 10/03/2024 External Device Data [facility] ABSTRACTION Provider, Abstract from Last 3 Months Immunizations Immunization Administration Dates Next Due Adacel Vaccine > 7 Yo IM 10/03/2020 PREVNAR (PCV13) pneumococcal 13-valent conjugate Vaccine 10/03/2020 Zoster Vaccine Live SQ 10/03/2020 Family History Medical History Relation Name Comments Diabetes Brother 1 Devyn Darnell Jr. was diagnosed in his 40's Heart Disease Brother 1 Devyn Darnell Jr. Had stents p ut in 2019 High Cholesterol Brother 1 Devyn Darnell Jr. unknown d ate Hypertension Brother 1 Devyn Darnell Jr. Diabetes Brother 2 Jose F Mann Sr. was diagnosed in his 40's Heart Disease Brother 2 Jose F Mann Sr. Has had 4 hea rt attacks High Cholesterol Brother 2 Jose F Mann Sr. unknown da te Hypertension Brother 2 Jose F Yates Sr. Stroke Brother 2 Jose F Yates Sr. Diabetes Father Devyn Darnell was diagnosed i n his 40's Heart Disease Father Devyn Darnell Was diagnosed in 1995 had bypass surgery High Cholesterol Father Devyn Darnell unknown burke e Hypertension Father Devyn Darnell Osteoporosis Father Devyn Darnell unknown date Depression Mother Anamaria Darnell unknown date High Cholesterol Mother Anamaria Darnell unknown burke e Hypertension Mother Anamaria Darnell Ovarian Cancer Other self stage 1 Breast Cancer Neg Hx Cancer - Other Neg Hx Melanoma Neg Hx Pancreatic Cancer Neg Hx Uterine or Endometrial Cance r, Not Including Cervical Neg Hx Relation Name Status Comments Brother 1 Devyn Darnell Jr. Brother 2 Jose F Mann Sr. Father Devyn Darnell Mother Anamaria Darnell Other self Social History Tobacco Use Types Packs/Day Years Used Date Smoking Tobacco: Never Smokeless Tobacco: Never Tobacco Cessation:Counseling Given: Not Answered Alcohol Use Standard Drinks/Week Comments Not Currently 0 (1 standard drink = 0.6 oz pur e alcohol) Comments No Sex and Gender Information Value Date Recorded Sex Assigned at Not on file Legal Sex Female 1:16 AM EVENT STAFF MEMBER Gender Identity Not on file Sexual Orientation Not on file Last Filed Vital Signs Vital Sign Reading Time Taken Comments Blood Pressure 118/64 12/27/2024 11:34 AM CDT Pulse 81 11/21/2024 11:45 AM CDT Temperature 36.6 C (97.8 F) 11/21/2024 11:45 AM CDT Respiratory Rate 18 11/21/2024 11:45 AM CDT Oxygen Saturation 100% 11/21/2024 11:45 AM CDT Inhaled Oxygen Concentration - - Weight 76.7 kg (169 lb) 12/27/2024 11:34 AM CDT Height 167.6 cm (5' 6 ) 11/21/2024 11:45 AM CDT Body Mass Index 27.28 11/21/2024 11:45 AM CDT Plan of Treatment Upcoming Encounters Date Type Department Care Team (Late st Contact Info) Description 01/11/2025 10:40 AM CDT Office Visit [facility] Rheumatology- [facility] [place] [address] [place] [address] Isrrael Sebastian MD [address] [place] [address] 05/24/2025 11:00 AM EVENT STAFF MEMBER Office Visit [facility] Family Medicine [place] [address] [address] Italo Torres MD [address] [address] Health Maintenance Due Date Last Done Comments DIABETES ANNUAL FOOT EXAM 02/15/1986 HEPATITIS B VACCINES (1 of 3 - 19+ 3-dose series) 02/15/1987 HPV/Cotest (21-29) 02/15/1989 CERVICAL CANCER SCREENING 02/15/1998 HPV/Cotest (30-65) 02/15/1998 PAP SMEAR 02/15/1998 COLORECTAL SCREENING 02/15/2013 FIT-DNA Q 3 years 02/15/2013 Flex Sig/CT Colonography Q 5 years 02/15/2013 ZOSTER VACCINE (1 of 2) 11/28/2020 10/03/2020 Preventative Visit- Commercial 04/19/2024 DIABETES ANNUAL RETINAL EXAM 04/27/2024 04/27/2023 BREAST CANCER SCREENING 05/14/2024 05/14/2023, 03/29 INFLUENZA VACCINE (#1) 2024 02/14/2024 DIABETES HBA1C Q 6 MONTHS 04/25/20252024, 06/26/2024, 05/01/2024, Additional history exists DIABETES MICROALBUMIN ANNUAL SCREEN 10/23/2025 10/23/2024, 06/26/2024, 05/01/2024, Additional history exists DIABETES: A1C (Auto Order) 10/23/202510/23, 06/26/2024, 05/01/2024, Additional history exists LDL CHOLESTEROL ANNUAL 10/23/2025 , 06/26/2024, 05/01/2024, Additional history exists Colorectal Cancer Screening 11/13/2025 FIT/FOBT Q 1 year 11/13/2025 11/13/2024 DTAP/TDAP/TD VACCINES (2 - T d or Tdap) 10/03/2030 10/03/2020 Procedures Procedure Name Priority Date/Time Associated Diagnosis Comments CBC WITH DIFFERENTIAL Routine 12/27/2024 11:20 AM CDT Rheumatoid arthritis involving multiple sites, unspecified whether rheumatoid factor present (CMS/[facility]) Fibromyalgia [place] HEPATIC FUNCTION PANEL Routine 11:20 AM CDT Rheumatoid arthritis involving multiple sites, unspecified whether rheumatoid factor present (CMS/HCC) Fibromyalgia CREATININE Routine 12/27/2024 11:20 AM CDT Rheumatoid arthritis involving multiple sites, unspecified whether rheumatoid factor present (CMS/HCC) Fibromyalgia CBC WITH DIFFERENTIAL Routine 11/21/2024 12:14 PM CDT Type 2 diabetes mellitus with diabetic polyneuropathy, without long-term current use of insulin (CMS/HCC) Type 2 diabetes mellitus with microalbuminuria, without long-term current use of insulin ([facility]) Anemia, unspecified type BASIC METABOLIC PANEL Routine 11/21/2024 12:14 PM CDT Type 2 diabetes mellitus with diabetic polyneuropathy, without long-term current use of insulin ([facility]/HCC) Type 2 diabetes mellitus with microalbuminuria, without long-term current use of insulin ([facility]) Anemia, unspecified type PROTEIN ELECTROPHORESIS W/REFLEX,SERUM Routine 11/21/2024 12:14 PM CDT Anemia, unspecified type OCCULT BLOOD IMMUNOASSAY, COLORECTAL SCREEN Routine 11/13/2024 1:07 PM CDT VITAMIN B12 AND FOLATE Routine 8:47 AM CDT Anemia, unspecified type FERRITIN Routine 11/09/2024 8:47 AM CDT Anemia, unspecified type IRON, TIBC, AND PERCENT SATURATION Routine 11/09/2024 8:47 AM CDT Anemia, unspecified type URINE CULTURE Routine 10/23/2024 3:00 PM CDT Urinary tract infection with hematuria, site unspecified POC URINALYSIS DIPSTICK AUTOMATED Routine 10/23/2024 2:17 PM CDT Hematuria, unspecified type CBC WITH DIFFERENTIAL Routine 10/23/2024 1:56 PM CDT Type 2 diabetes mellitus with diabetic polyneuropathy, without long-term current use of insulin ([facility]) COMPREHENSIVE METABOLIC PANEL Routine 10/23/2024 1:56 PM CDT Type 2 diabetes mellitus with diabetic polyneuropathy, without long-term current use of insulin ([facility]) HEMOGLOBIN A1C Routine 10/23/2024 1:56 PM CDT Type 2 diabetes mellitus with diabetic polyneuropathy, without long-term current use of insulin ([facility]) LIPID PANEL Routine 10/23/2024 1:56 PM CDT Type 2 diabetes mellitus with diabetic polyneuropathy, without long-term current use of insulin (CMS/HCC) TSH Routine 10/23/2024 1:56 PM CDT Type 2 diabetes mellitus with diabetic polyneuropathy, without long-term current use of insulin (CMS/HCC) MICROALBUMIN/CREATININE RATIO, RANDOM UR Routine 10/23/2024 1:56 PM CDT Type 2 diabetes mellitus with diabetic polyneuropathy, without long-term current use of insulin (CMS/HCC) HEPATIC FUNCTION PANEL Routine 10:56 AM CDT Rheumatoid arthritis involving multiple sites, unspecified whether rheumatoid factor present (CMS/HCC) Long-term use of leflunomide therapy Encounter for monitoring leflunomide therapy CREATININE Routine 10/02/2024 10:56 AM CDT Rheumatoid arthritis involving multiple sites, unspecified whether rheumatoid factor present (CMS/HCC) Long-term use of leflunomide therapy Encounter for monitoring leflunomide therapy CBC WITH DIFFERENTIAL Routine 10/02/2024 10:56 AM CDT Rheumatoid arthritis involving multiple sites, unspecified whether rheumatoid factor present (CMS/HCC) Long-term use of leflunomide therapy Encounter for monitoring leflunomide therapy MAMMO DIAG UNI LEFT 3D EMIR W OR WO CAD Routine 05/14/2023 12:48 PM EVENT STAFF MEMBER Inconclusive mammogram HM DIABETES EYE EXAM Routine 04/27/2023 10:57 AM EVENT STAFF MEMBER from Last 3 Months or Most Recently Relevant to Health Maintenance Results * (ABNORMAL) CBC WITH DIFFERENTIAL (12/27/2024 11:20 AM CDT) Only the most recent of4 resultswithin the time period is included. WBC 4.8 3.8 - 10.8 Thousand/u L [...] [facility] Comment: Test Performed at: [facility] [address] [place] [address] Wes Colvin MD Blood 12/27/2024 11:2 0 AM CDT 12/28/2024 4:40 AM CDT Isrrael Sebastian MD HEMATOLOGY O RDERABLES Final Result [facility] [phone] [facility] [address] [place] [address] * (ABNORMAL) CREATININE (12/27/2024 11:20 AM CDT) Only the most recent of2 resultswithin the time period is included. Pathologist [facility] CREATININE 1.25(H) 0.50 - 1.03 mg/dL [facility] GFR 51(L) > OR = 60 mL/min/1.7 3m2 [email or web address] Comment: Test Performed at: [facility] [address] [place] [address] Wes Colvin MD Blood 12/27/2024 11:2 0 AM CDT 12/28/2024 4:40 AM CDT Isrrael Sebastian MD CHEMISTRY OR DERABLES Final Result [facility] [phone] [email or web address] [address] [place] [address] * HEPATIC FUNCTION PANEL (12/27/2024 11:20 AM CDT) Only the most recent of2 resultswithin the time period is included. Pathologist [facility] TOTAL PROTEIN 7.3 6.1 - 8.1 g/dL [...] [facility] Comment: Test Performed at: [facility] [address] [facility] [place] [address] Wes Colvin MD Blood 12/27/2024 11:2 0 AM CDT 12/28/2024 4:40 AM CDT us Isrrael Sebastian MD CHEMISTRY OR DERABLES Final Result [facility] [phone] [facility] [address] [place] [address] * PROTEIN ELECTROPHORESIS W/REFLEX,SERUM (11/21/2024 12:14 PM CDT) Pathologist [facility] TOTAL PROTEIN 7.1 6.1 - 8.1 g/dL [facility] ALBUMIN SPE 4.6 3.8 - 4.8 g/dL [facility] ALPHA 1 GLOBULIN SPE 0.3 0.2 - 0.3 g/dL [facility] ALPHA 2 GLOBULIN SPE 0.6 0.5 - 0.9 g/dL [facility] Beta 1 Globulin 0.5 0.4 - 0.6 g/dL [facility] Beta 2 Globulin 0.3 0.2 - 0.5 g/dL [facility] GAMMA GLOBULIN 0.8 0.8 - 1.7 g/dL [facility] SPE INTERP [facility] Comment: No restricted band (M-spike) seen. Test Performed at: [facility] [address] [facility] [place] [address] Wes Colvin MD Blood 11/21/2024 12:1 4 PM CDT 11/22/2024 4:34 AM CDT us Italo Torres MD CHEMISTRY ORDERABLES Romelia l Result [facility] [phone] [facility] [address] * (ABNORMAL) BASIC METABOLIC PANEL (11/21/2024 12:14 PM CDT) Pathologist [facility] GLUCOSE 70 65 - 99 mg/dL [facility] Comment: Fasting reference interval BUN 19 7 - 25 mg/dL [facility] CREATININE 1.05(H) 0.50 - 1.03 mg/dL [facility] GFR 62 > OR = 60 mL/min/1.7 3m2 [facility] BUN/CREAT RATIO 18 6 - 22 (calc) [facility] SODIUM 138 135 - 146 mmol/L [facility] POTASSIUM 4.0 3.5 - 5.3 mmol/L [facility] CHLORIDE 102 98 - 110 mmol/L [facility] CO2 29 20 - 32 mmol/L [facility] CALCIUM 9.9 8.6 - 10.4 mg/dL [email or web address] Comment: Test Performed at: [facility] [address] Wes Colvin MD Blood 11/21/2024 12:1 4 PM CDT 11/22/2024 4:34 AM CDT Italo Torres MD CHEMISTRY ORDERABLES [facility] Result [facility] [phone] [email or web address] [address] * OCCULT BLOOD IMMUNOASSAY, COLORECTAL SCREEN (11/13/2024 1:07 PM CDT) [facility] FECAL GLOBIN SEE NOTE [facility] Comment: FECAL GLOBIN BY IMMUNOCHEMISTRY Micro Number: [id number] Test Status: Final Specimen Source: Insure () fobt test card Specimen Quality: Adequate Fecal Globin: Not Detected Reference Range: Not Detected NOTE: Approved collection includes sample of toilet water adjacent to stool. Other methods of collection such as stool transferred from diaper, bedpan, or commode to toilet water may lead to inaccurate results. NO COLLECTION DATE RECEIVED. WE HAVE USED THE DATE THE SPECIMEN WAS RECEIVED BY THIS LABORATORY THE COLLECTION DATE. IF THIS IS INCORRECT, PLEASE CONTACT CLIENT SERVICES. PHONE NUMBER: [phone] Test Performed at: [facility] [address] Wes Colvin MD 11/11/2024 1:0 5 AM CDT Italo Torres MD BODY FLUIDS AND STOOLS Fi nal Result Performing Organization Address [facility] Co de Phone Number [facility] [phone] [email or web address] [address] * (ABNORMAL) VITAMIN B12 AND FOLATE (11/09/2024 8:47 AM CDT) VITAMIN B12 1238(H) 200 - 1100 pg/mL [facility] FOLATE, SERUM 17.2 ng/mL [facility] Comment: Reference Range Low: <3.4 Borderline: 3.4-5.4 Normal: >5.4 Test Performed at: [facility] [address] YohanaElis Colvin MD Blood 11/09/2024 8:47 AM CDT 11/09/2024 8:48 AM CDT Italo Torres MD CHEMISTRY ORDERABLES Romelia l Result Performing Organization Address [facility] Co de Phone Number [facility] [phone] [email or web address] [address] * IRON, TIBC, AND PERCENT SATURATION (11/09/2024 8:47 AM CDT) IRON 92 45 - 160 mcg/dL [facility] TIBC 335 250 - 450 mcg/dL (calc) [facility] IRON % SATURATION 27 16 - 45 % (calc) [facility] Comment: Test Performed at: [facility] [address] [place] [address] Wes Colvin MD Blood 11/09/2024 8:47 AM CDT 11/09/2024 8:48 AM CDT Italo Torres MD CHEMISTRY ORDERABLES Romelia l Result Performing Organization Address City/[facility] Co de Phone Number [facility] [phone] [facility] [address] [place] [phone] * FERRITIN (11/09/2024 8:47 AM CDT) FERRITIN 130 16 - 232 ng/mL [facility] Comment: Test Performed at: [facility] [address] Wes Colvin MD Blood 11/09/2024 8:47 AM CDT 11/09/2024 8:48 AM CDT Italo Torres MD CHEMISTRY ORDERABLES Romelia l Result Performing Organization Address [facility] Co de Phone Number [facility] [phone] [facility] [address] * (ABNORMAL) URINE CULTURE (10/23/2024 3:00 PM CDT) URINE CULTURE SEE NOTE(A) [facility] Comment: CULTURE, URINE, ROUTINE Micro Number: [id number] Test Status: Final Specimen Source: Urine, clean catch Specimen Quality: Adequate Result: Greater than 100,000 CFU/mL of Escherichia coli E.coli INT CEE AMOX/CLAVULANATE S <=2 AMP/SULBACTAM S <=2 CEFAZOLIN NR <=4 2 CEFEPIME S <=0.12 CEFTAZIDIME S <=1 CEFTRIAXONE S <=0.25 CIPROFLOXACIN S <=0.06 GENTAMICIN S <=1 IMIPENEM S <=0.25 LEVOFLOXACIN S <=0.12 MEROPENEM S <=0.25 NITROFURANTOIN S <=16 PIP/TAZOBACTAM S <=4 TRIMETHOPRIM/SULFA S <=20 S = Susceptible I = Intermediate R = Resistant NS = Not susceptible SDD = Susceptible Dose Dependent * = Not Tested NR = Not Reported NN = See Therapy Comments THERAPY COMMENTS Note 1: For infections other than uncomplicated UTI caused by E. coli, K. pneumoniae or P. mirabilis: Cefazolin is resistant if CEE > or = 8 mcg/mL. (Distinguishing susceptible versus intermediate for isolates with CEE < or = 4 mcg/mL requires additional testing.) Note 2: For uncomplicated UTI caused by E. coli, K. pneumoniae or P. mirabilis: Cefazolin is susceptible if CEE <32 mcg/mL and predicts susceptible to the oral agents cefaclor, cefdinir, cefpodoxime, cefprozil, cefuroxime, cephalexin and loracarbef. Test Performed at: [facility] [address] [place] [address] Wes Colvin MD Urine URINE SPECIMEN OBTAINED BY CLEAN CATCH PROCEDURE / Unknown 10/23/2024 3:00 PM CDT 10/24/2024 6:16 AM CDT Umm Mc[address] [facility] MICROBIOLOGY - GENERAL CAPRICE ELIZABETH Final Result [facility] [phone] [facility] [address] [place] [address] * (ABNORMAL) POC URINALYSIS DIPSTICK AUTOMATED (10/23/2024 2:17 PM CDT) COLOR UA POC Yellow Pale to Dark Yellow [facility] CLARITY UA POC Slightly Cloudy(A) Clear, Other [facility] GLUCOSE UA POC Negative Negative, Normal [facility] BILIRUBIN UA POC Negative Negative [facility] KETONES UA POC Negative Negative [facility] SPECIFIC GRAVITY UA POC 1.015 1.000 - 1.030 [facility] BLOOD UA POC 2+(A) Negative [facility] PH UA POC 7.0 5.0 - 8.0 [facility] PROTEIN UA POC 1+(A) Negative [facility] UROBILINOGEN UA POC 0.2 <2.0 mg/dL [facility] NITRITE UA POC Negative Negative [facility] LEUKOCYTE ESTERASE UA POC 3+(A) Negative [facility] KIT LOT NUMBER POC [phone] [facility] KIT EXP DATE POC [id number] [facility] Urine 10/23/2024 2:17 PM CDT Italo Torres MD POINT OF CARE TESTING Fin al Result [facility] CLIA# [id number] [address] [place] [address] * (ABNORMAL) MICROALBUMIN/CREATININE RATIO, RANDOM UR (10/23/2024 1:56 PM CDT) CREATININE, URINE 46 20 - 275 mg/dL [facility] ALBUMIN, URINE 11.9 See Note: mg/dL [facility] Comment: Reference Range: Reference Range Not established ALB/CREAT RATIO, URINE 259(H) <30 mg/g creat [facility] Comment: The ADA defines abnormalities in albumin excretion as follows: Albuminuria Category Result (mg/g creatinine) Normal to Mildly increased <30 Moderately increased 30-299 Severely increased > OR = 300 The ADA recommends that at least two of three specimens collected within a 3-6 month period be abnormal before considering a patient to be within a diagnostic category. Test Performed at: [facility] [address] [place] [address] Wes Colvin MD Urine URINE SPECIMEN OBTAINED BY CLEAN CATCH PROCEDURE / Unknown 10/23/2024 1:56 PM CDT 10/24/2024 5:42 AM CDT Italo Torres MD URINE ORDERABLES Final Re sult Performing Organization Address [facility]/ZIP Co de Phone Number [facility] [phone] [facility] [address] [place] [address] * TSH (10/23/2024 1:56 PM CDT) TSH 0.41 0.40 - 4.50 mIU/L [facility] Comment: Test Performed at: [facility] [address] [place] [address] Wes Colvin MD Blood 10/23/2024 1:56 PM CDT 10/24/2024 5:49 AM CDT Italo Torres MD CHEMISTRY ORDERABLES Romelia l Result Performing Organization Address [facility] Co de Phone Number [facility] [phone] [facility] [address] [place] [phone] * HEMOGLOBIN A1C (10/23/2024 1:56 PM CDT) HEMOGLOBIN A1C 5.0 <5.7 % [email or web address] Comment: For the purpose of screening for the presence of diabetes: <5.7% Consistent with the absence of diabetes 5.7-6.4% Consistent with increased risk for diabetes (prediabetes) > or =6.5% Consistent with diabetes This assay result is consistent with a decreased risk of diabetes. Currently, no consensus exists regarding use of hemoglobin A1c for diagnosis of diabetes in children. According to [place] [employer] Association (ADA) guidelines, hemoglobin A1c <7.0% represents optimal control in non- diabetic patients. Different metrics may apply to specific patient populations. Standards of Medical Care in Diabetes(ADA). ESTIMATED AVERAGE GLUCOSE (MG/DL) 97 mg/dL [facility] ESTIMATED AVERAGE GLUCOSE (MMOL/L) 5.4 mmol/L [facility] Comment: Test Performed at: [facility] [address] [facility] [place] [address] Wes Colvin MD Blood 10/23/2024 1:56 PM CDT 10/24/2024 5:49 AM CDT Italo Torres MD CHEMISTRY ORDERABLES Romelia l Result [facility] [phone] [facility] [address] [place] [address] [place] [address] * (ABNORMAL) LIPID PANEL (10/23/2024 1:56 PM CDT) CHOLESTEROL 176 <200 mg/dL [facility] HDL 41(L) > OR = 50 mg/dL [facility] TRIGLYCERIDE 108 <150 mg/dL [facility] LDL CALCULATED 113(H) mg/dL (calc) [facility] Comment: Reference range: <100 Desirable range <100 mg/dL for primary prevention; <70 mg/dL for patients with CHD or diabetic patients with > or = 2 CHD risk factors. LDL-C is now calculated using the Eben-Hardni calculation, which is a validated novel method providing better accuracy than the Friedewald equation in the estimation of LDL-C. Eben SS et al. REBECCA. 2013;310(19): 9811-6841 (http://education.OrderingOnlineSystem.com/faq/IIB838) CHOL/HDL RATIO 4.3 <5.0 (calc) [facility] NON-HDL CHOLESTEROL 135(H) <130 mg/dL (calc) [facility] Comment: For patients with diabetes plus 1 major ASCVD risk factor, treating to a non-HDL-C goal of <100 mg/dL (LDL-C of <70 mg/dL) is considered a therapeutic option. Test Performed at: [facility] [address] [facility] [facility] [place] [address] Wes Colvin MD Blood 10/23/2024 1:56 PM CDT 10/24/2024 5:49 AM CDT Italo Torres MD CHEMISTRY ORDERABLES Romelia patton Result [facility] [phone] [facility] [address] [place] [address] * COMPREHENSIVE METABOLIC PANEL (10/23/2024 1:56 PM CDT) [facility] GLUCOSE 85 65 - 99 mg/dL [facility] Comment: Fasting reference interval BUN 17 7 - 25 mg/dL [facility] CREATININE 0.95 0.50 - 1.03 mg/dL [facility] GFR 70 > OR = 60 mL/min/1. 73m2 [facility] BUN/CREAT RATIO SEE NOTE: 6 - 22 (calc) [facility] Comment: Not Reported: BUN and Creatinine are within reference range. SODIUM 139 135 - 146 mmol/L [facility] POTASSIUM 4.0 3.5 - 5.3 mmol/L [facility] CHLORIDE 103 98 - 110 mmol/L [facility] CO2 30 20 - 32 mmol/L [facility] CALCIUM 9.8 8.6 - 10.4 mg/dL [facility] TOTAL PROTEIN 6.7 6.1 - 8.1 g/dL [facility] ALBUMIN 4.4 3.6 - 5.1 g/dL [facility] GLOBULIN 2.3 1.9 - 3.7 g/dL (calc) [facility] ALBUMIN/GLOBULIN RATIO 1.9 1.0 - 2.5 (calc) [facility] BILIRUBIN TOTAL 0.4 0.2 - 1.2 mg/dL [facility] ALKALINE PHOSPHATASE 44 37 - 153 U/L [facility] AST 21 10 - 35 U/L [facility] ALT 19 6 - 29 U/L [facility] Comment: Test Performed at: [facility] [address] [facility] [address] Wes Colvin MD Blood 10/23/2024 1:56 PM CDT 10/24/2024 5:49 AM CDT us Italo Torres MD CHEMISTRY ORDERABLES Romelia l Result [facility] [phone] [facility] [address] [facility] [place] [address] * MAMMO DIAG UNI LEFT 3D EMIR W OR WO CAD (05/14/2023 12:48 PM EVENT STAFF MEMBER) Anatomical Region Laterality Modality Breast Left Mammography 05/14/2023 12:4 9 PM EVENT STAFF MEMBER Impressions 05/14/2023 1:48 PM EVENT STAFF MEMBER IMPRESSION: 1. No imaging evidence of malignancy. The patient was given verbal and written results and recommendations by the technologist BI-RADS ASSESSMENT: 2 - Benign RECOMMENDATION: Routine annual screening mammogram in 1 year. [id number] Narrative 05/14/2023 1:48 PM EVENT STAFF MEMBER EXAM: MAMMO 3D EMIR DIAGNOSTIC UNI LT W OR WO CAD, MAMMO BREAST US LEFT LTD INDICATION: Patient returns for additional imaging of left breast asymmetry on screening mammography. COMPARISON: 03/29/2023 MAMMOGRAM TECHNIQUE: 2-D and 3D tomosynthesis diagnostic images were acquired and CAD was also used. BREAST COMPOSITION: There are scattered areas of fibroglandular density. FINDINGS: LEFT BREAST: The previously seen asymmetry effaces on additional imaging, representing superimposed normal breast parenchyma. LEFT BREAST ULTRASOUND: A limited left breast ultrasound was performed with real-time scanning. Unremarkable breast tissue is confirmed within the superior left breast. Some nonspecific small hyperechoic areas are noted as well as a few tiny cysts within the subcutaneous fat. Procedure Note Roldan Gibson MD - 05/14/2023 EXAM: MAMMO 3D EMIR DIAGNOSTIC UNI LT W OR WO CAD, MAMMO BREAST US LEFT LTD INDICATION: Patient returns for additional imaging of left breast asymmetry on screening mammography. COMPARISON: 03/29/2023 MAMMOGRAM TECHNIQUE: 2-D and 3D tomosynthesis diagnostic images were acquired and CAD was also used. BREAST COMPOSITION: There are scattered areas of fibroglandular density. FINDINGS: LEFT BREAST: The previously seen asymmetry effaces on additional imaging, representing superimposed normal breast parenchyma. LEFT BREAST ULTRASOUND: A limited left breast ultrasound was performed with real-time scanning. Unremarkable breast tissue is confirmed within the superior left breast. Some nonspecific small hyperechoic areas are noted as well as a few tiny cysts within the subcutaneous fat. IMPRESSION: 1. No imaging evidence of malignancy. The patient was given verbal and written results and recommendations by the technologist BI-RADS ASSESSMENT: 2 - Benign RECOMMENDATION: Routine annual screening mammogram in 1 year. [id number] Italo Torres MD MAMMO ORDERABLES Final Re sult * DIABETES EYE EXAM (04/27/2023 10:57 AM EVENT STAFF MEMBER) us Abstract Provider HEALTH MAINTENANCE Final Resul t from Last 3 Months or Most Recently Relevant to Health Maintenance Insurance [facility] CHOICE [id number] [place] [address] RX [facility] [employer] Care Teams Post Adoption Coordinator Relationship Specialty Start Date End Date Italo Torres MD [address] [phone] PCP - General Family Practice 02/16/23
--- OUTSIDE RECORDS SUMMARY | 2025-01-02 13:30 | XMS_ITS | Encounter Summary ---
Author Organization [facility] Address [address] [place] [address] Care Team Providers Care Blower Mechanic Name Role Phone Neptali Resendez DO Primary Care Provide r Encounter Details Date Type Department Care Team (Latest Contact Info) Description 08/22/2004 Outpatient Historical [facility] [place] [address] [place] [address] Panchito Nieto MD NO ADDRESS ON FILE ASTHMA UNSPECIFIED (Primary Dx) Social History Tobacco Use Types Packs/Day Years Used Date Smoking Tobacco: Never Assessed Comments Unknown Sex and Gender Information Value Date Recorded Sex Assigned at Not on file Legal Sex Female 6:23 AM QUALITY NURSE Gender Identity Not on file Sexual Orientation Not on file documented as of this encounter Plan of Treatment Not on file documented as of this encounter Visit Diagnoses Diagnosis Unspecified asthma(493.90)- Primary Unspecified asthma documented in this encounter Care Teams Blower Mechanic Relationship Specialty Start Date End Date Neptali Resendez DO [address] [facility] [address] [place] [address] PCP - General Internal Medicine 03/19/14 documented as of this encounter
--- NOTE | 2025-01-02 16:05 | CTR_ITS ---
PROCEDURE INFORMATION: Exam: CT Head Without Contrast Exam date and time: 01/02/2025 4:17 PM Age: 54 years old Clinical indication: Dizziness; Additional info: Headache x 6 hours, mild dizziness TECHNIQUE: Imaging protocol: Computed tomography of the head without contrast. Radiation optimization: All CT scans at this facility use at least one of these dose optimization techniques: automated exposure control; mA and/or kV adjustment per patient size (includes targeted exams where dose is matched to clinical indication); or iterative reconstruction. COMPARISON: CT head wo con* [id number] 10/05/2018 1:04 PM RADIATION DOSE METRICS: Total DLP (mGy-cm): 1060.18 FINDINGS: Brain: Unchanged small perivascular spaces in the basal ganglia regions bilaterally. No parenchymal abnormalities. Fscl-io-tqwbpprb cerebellar sulcal widening again noted. Mild cerebral sulcal widening. No mass effect or midline shift. Cerebral ventricles: No ventriculomegaly. Paranasal sinuses: Fluid and mucosal thickening partially opacify the ethmoid air cells. Mild mucosal thickening in the sphenoid sinuses. Mastoid air cells: Mastoid air cells are clear. Bones: No osseous lesions. Soft tissues: Unremarkable. CT/CT head wo con* [id number] IMPRESSION: 1. No acute intracranial abnormality. 2. Mild cerebral and cerebellar volume loss. 3. Ethmoid and sphenoid sinusitis.
--- NOTE | 2025-01-02 16:07 | W.ED.GENADLT ---
HPI - General Adult General: Chief complaint: General Medical Stated complaint: plunging a sink, chemicals spalashed on her face Time Seen by Provider: 01/02/25 15:55 History of Present Illness: Patient presenting to the emergency department due to severe headache and lightheadedness, reports that she was punching a sink and trying to relieve an obstruction when she put some Oxy clean and there, she subsequently put some bleach in there and it back exploded onto her face, she reports some mild redness to her vision initially after that has resolved, she currently denies any vision loss double vision or blurry vision but does not report that since that occurred she has had a significant 8-9 out of 10 headache with associated lightheaded dizziness, no room spinning dizziness, no weakness numbness or tingling to the face arms or legs, she is able to ambulate but reports dizziness when doing so, she denies vomiting but endorses photophobia and nausea, symptoms starting around 12 pm. Her family member reported that she was texting him and appeared to be incoherent at the time although this has improved. She reports a history of hypertension hyperlipidemia diabetes, she denies any history of neurologic illness, denies history of heart disease, she endorses a history of ovarian cancer stage I that was removed surgically and never needed any further intervention, she also reports a few skin cancers that were also removed surgically without any spread or signs of metastatic disease. Related Data Home Medications ?Medication ?Instructions ?Recorded ?Confirmed acetaminophen 650 mg 650 mg PO ONCE PRN 01/30/20 02/08/23 tablet,extended release (Tylenol Arthritis Pain) aspirin 81 mg tablet,delayed 81 mg PO DAILY 01/30/20 02/08/23 release prednisone 5 mg tablet 5 mg PO DAILY PRN joint pain flare 10/28/22 02/08/23 Previous Rx's ?Medication ?Instructions ?Recorded albuterol sulfate 90 mcg/actuation 2 puff inhalation QID PRN 05/19/20 aerosol inhaler (Ventolin HFA) shortness of breath or wheezing #6.7 grams syringe with needle 1 mL 27 x 1/2 #20 ea 04/29/22 (BD Eclipse Luer-Senait) flash glucose sensor (FreeStyle #1 ea 05/04/22 Amilcar 3 Sensor kit) ezetimibe 10 mg tablet (Zetia) 10 mg PO DAILY #90 tabs 06/01/22 insulin syringe-needle U-100 1 mL #20 ea 06/01/22 27 gauge x 1/2 (BD Insulin Syringe) levothyroxine 88 mcg capsule 88 mcg PO DAILY #90 caps 06/01/22 pantoprazole 40 mg tablet,delayed 40 mg PO DAILY #90 tabs 06/01/22 release sucralfate 1 gram tablet (Carafate) 1 g PO BID #20 tabs 06/01/22 semaglutide 0.25 mg or 0.5 mg (2 0.5 mg (0.374 mL) SUBCUT .every 7 07/10/22 mg/1.5 mL) subcutaneous pen days #1.5 mL injector (Recorrido) doxycycline hyclate 100 mg capsule 100 mg PO BID 10 days #20 caps 07/22/22 mecobalamin (vitamin B12) 10,000 1,000 mcg IM .monthly #1 ea 08/26/22 mcg solution for injection diclofenac sodium 1 % topical gel 4 g topical QID #300 grams 10/28/22 leflunomide 20 mg tablet 20 mg PO DAILY 90 days #90 tabs 10/28/22 pregabalin 75 mg capsule (Lyrica) 75 mg PO BID #60 caps 10/28/22 sertraline 50 mg tablet 50 mg PO DAILY #90 tabs 11/17/22 spironolactone 100 mg tablet 200 mg (2 x 100 mg) PO DAILY #90 12/02/22 tabs semaglutide 1 mg/dose (4 mg/3 mL) See Rx Instructions .Route 12/16/22 subcutaneous pen injector (Ozempic) .COMPLEX #3 mL semaglutide 2 mg/dose (8 mg/3 mL) See Rx Instructions .Route 01/26/23 subcutaneous pen injector (Ozempic) .COMPLEX #3 mL evolocumab 140 mg/mL subcutaneous 140 mg SUBCUT Q14D 30 days #3 mL 02/08/23 pen injector (Repatha SureClick) metformin 500 mg tablet,extended See Rx Instructions .Route 02/15/23 release 24 hr .COMPLEX #270 tabs Allergies Allergy/AdvReac Type Severity Reaction Status Date / Time Sulfa (Sulfonamide Allergy ALGY-Hives Verified 02/08/23 07:43 Antibiotics) PFSH ED PFSH: Medical History Kidney stones Cervical radiculopathy Chronic low back pain Osteopenia Seronegative rheumatoid arthritis of both hands Swelling of both parotid glands Immunization counseling High risk medication use Ankle fracture, right Inflammatory arthritis Diabetic peripheral neuropathy associated with type 2 diabetes mellitus Hypertension Rheumatoid arthritis Disorder of thyroid Surgical History History of dilation and curettage History of hysterectomy Family History Other Anesthesia complication CAD (coronary artery disease) Cancer Diabetes Hypertension Denies family history of Clotting disorder Dementia Hyperlipidemia Psychiatric illness Chronic kidney disease (CKD) Suicide Bleeding disorder Family history of premature coronary artery disease Lung disease Stroke Social History Smoking and tobacco/nicotine status: never used tobacco/nicotine Alcohol intake: current Alcohol intake frequency: holidays/special occasions only Substance/Drug Use: never Lives independently: Yes Household members: spouse Housing: House Marital status: Physical Exam Narrative: EXAM NARRATIVE: Gen: A&Ox4, no acute distress, nontoxic appearing HEENT: Normocephalic, atraumatic, no scleral icterus, external ears normal, moist mucous membranes, pupils equal and reactive to light, positive photophobia, no consensual photophobia, no conjunctival injection or chemosis, extraocular muscles normal no acute disconjugate gaze, no periorbital edema or proptosis, oropharyngeal exam with no lip or tongue edema, no posterior oropharyngeal edema or erythema, no stridor, no trismus, tolerating secretions Neck: Supple, full range of motion, no observable masses Lungs: No Respiratory distress, Lungs clear to auscultation bilaterally no rales, rhonchi, wheezing CV: Regular rate and rhythm, no murmur, no pitting edema to lower extremities bilaterally Abdomen: Soft, nondistended, nontender to palpation MSK: No joint swelling, FROM all 4 extremities Skin: No rashes, petechiae, lesions. Normal color per patient. Neuro: Alert and oriented, no slurred speech, sensation and strength grossly intact all 4 extremities, Romberg negative, ambulating with steady gait, no dysmetria, no pronator drift, no nystagmus on extraocular muscle testing Psych: Appropriate for situation. Course Reevaluation(s): Reevaluation #1: Patient reassessed at this time, sleeping comfortably, she was awoken and reports that her headache is markedly improved her dizziness has resolved and she is feeling better. Her CT brain is negative, she is stable for discharge with as needed Motrin, hydration instructions, avoidance of alcohol for the next 2 days. return precautions discussed Time: 17:55 Vital Signs: Vital signs: Vital Signs Temperature 98.6 F 01/02/25 12:59 Pulse Rate 83 01/02/25 12:59 Respiratory Rate 16 01/02/25 12:59 Blood Pressure 134/90 01/02/25 12:59 Pulse Oximetry 100 01/02/25 12:59 Oxygen Delivery Me thod Room Air 01/02/25 12:59 MDM - General Adult Medical Decision Making 54-year-old female history hypertension hyperlipidemia diabetes, presenting to the emergency department with headache photophobia nausea and lightheaded dizziness after sustaining a toxic exposure with predominantly fumes from mixed cleaning agents on a sink, she has no evidence to the face eyes or oropharynx of thermal or chemical injury, she has a normal neurologic exam on my assessment, I suspect the fumes have led to a an uncomplicated migraine/headache syndrome however given the severity of the headache and acuity of onset will obtain CT brain rule out spontaneous intracerebral hemorrhage/subarachnoid, plan for migraine management, fluids, repeat neurologic assessment, anticipate discharge if neurologic assessment stable and symptoms improved with normal CT brain. Differential Diagnosis Migraine, tension headache, subarachnoid hemorrhage, chemical exposure, no clinical concern for acute angle glaucoma Lab Data 01/02/25 16:30 01/02/25 16:[address] 01/02/25 16:05 IMPRESSION: 1. No acute intracranial abnormality. 2. Mild cerebral and cerebellar volume loss. 3. Ethmoid and sphenoid sinusitis. Laboratory Results WBC 5.73 10^3/uL (3.29-11.43) 01/02/25 16:30 RBC 4.21 10^6/uL (3.85-5.65) 01/02/25 16:30 Hgb 12.10 g/dL (11.27-16.99) 01/02/25 16: Hct 38.1 % (36-47) 01/02/25 16: MCV 90.5 fl (85-98) 01/02/25 16: MCH 28.7 pg (27-33) 01/02/25 16: MCHC 31.8 g/dL (30-55) 01/02/25 16: RDW 12.4 % (12.1-15.1) 01/02/25 16: Plt Count 313 10^3/cmm (157-399) 01/02/25 16: MPV 8.6 fL (7.4-10.4) 01/02/25 16: Neut % (Auto) 41.0 % 01/02/25 16: Lymph % (Auto) 42.4 % 01/02/25 16: [place] % (Auto) 10.3 % 01/02/25: Eos % (Auto) 4.2 % 01/02/25: Baso % (Auto) 1.9 % 01/02/25 Neut # (Auto) 2.35 10^3/uL (1.8-7.7) 01/02/25: Lymph # (Auto) 2.4 10^3/uL (0.8-4.8) 01/02/25: [place] # (Auto) 0.6 10^3/uL (0.2-0.9) 01/02/25: Eos # (Auto) 0.2 10^3/uL (0.0-0.8) 01/02/25: Baso # (Auto) 0.1 10^3/uL (0.0-0.1) 01/02/25: Nucleated RBC % (auto) 0 % 01/02/25: Nucleated RBCs # 0.0 /100WBC 01/02/25 16: Sodium 139 mmol/L (136-145) 01/02/25 16: Potassium 3.9 mmol/L (3.5-5.1) 01/02/25 16: Chloride 101 mmol/L (98-107) 01/02/25 16: Carbon Dioxide 27 mmol/L (22-29) 01/02/25 16: Anion Gap 14.9 (5-19) 01/02/25: BUN 13 mg/dL (6-20) 01/02/25:30 Creatinine 1.1 mg/dL (0.5-0.9) H 01/02/25 16:30 GFR Calculation 51.4 mL/min (90-130) L 01/02/25 16:30 Glucose 78 mg/dL (65-115) 01/02/25 16:30 Calculated Osmolality 287 mOsm/kg (285-295) 01/02/25 16:30 Calcium 10.1 mg/dL (8.5-10.5) 01/02/25 16:30 Total Bilirubin 0.3 mg/dL (0.15-1.2) 01/02/25 16:30 AST 19 U/L (0-32) 01/02/25 16:30 ALT 16 U/L (0-33) 01/02/25 16:30 Alkaline Phosphatase 44 U/L (35-105) 01/02/25 16:30 Total Protein 7.6 g/dL (6.6-8.7) 01/02/25 16:30 Albumin 4.7 g/dL (3.5-5.2) 01/02/25 16:30 Globulin 2.9 g/dL (1.3-4.6) 01/02/25 16:30 All radiology interpretation(s) finalized by discharge ED provider radiology interpretation(s): CT brain negative for intracerebral hemorrhage or mass effect/lesions Discharge Plan Discharge Patient Disposition: Home Clinical Impression: Acute tension headache, Exposure to industrial fumes Condition: Stable Prescriptions: No Action albuterol sulfate [Ventolin HFA] 90 mcg/actuation HFA aerosol inhaler 2 puff inhalation QID PRN (Reason: shortness of breath or wheezing) Qty: 6.7 0RF aspirin 81 mg tablet,delayed release (DR/EC) 81 mg PO DAILY acetaminophen [Tylenol Arthritis Pain] 650 mg tablet extended release 650 mg PO ONCE PRN prednisone 5 mg tablet 5 mg PO DAILY PRN (Reason: joint pain flare) diclofenac sodium 1 % gel 4 g topical QID Qty: 300 2RF Rx Instructions: apply to affected area as needed leflunomide 20 mg tablet 20 mg PO DAILY 90 Days Qty: 90 1RF pregabalin [Lyrica] 75 mg capsule 75 mg PO BID Qty: 60 3RF doxycycline hyclate 100 mg capsule 100 mg PO BID 10 Days Qty: 20 0RF (DME) BD Eclipse Luer-Senait 1 mL 27 x 1/2 syringe See Rx Instructions .Route Qty: 20 1RF Rx Instructions: to use for b12 injection (DME) FreeStyle Amilcar 3 Sensor Kit See Rx Instructions .Route Qty: 1 0RF Rx Instructions: to use with free style scanner ezetimibe [Zetia] 10 mg tablet 10 mg PO DAILY Qty: 90 3RF (DME) insulin syringe-needle U-100 [BD Insulin Syringe] 1 mL 27 gauge x 1/2 syringe See Rx Instructions .Route Qty: 20 0RF Rx Instructions: use for b12 injection levothyroxine 88 mcg capsule 88 mcg PO DAILY Qty: 90 3RF pantoprazole 40 mg tablet,delayed release (DR/EC) 40 mg PO DAILY Qty: 90 3RF sucralfate [Carafate] 1 gram tablet 1 g PO BID Qty: 20 0RF Ozempic 0.25 mg or 0.5 mg(2 mg/1.5 mL) pen injector 0.5 mg SUBCUT .every 7 days Qty: 1.5 6RF mecobalamin (vitamin B12) 10,000 mcg [place] 1,000 mcg IM .monthly Qty: 1 4RF sertraline 50 mg tablet 50 mg PO DAILY Qty: 90 3RF spironolactone 100 mg tablet 200 mg PO DAILY Qty: 90 3RF Ozempic 1 mg/dose (4 mg/3 mL) pen injector See Rx Instructions .ROUTE .COMPLEX Qty: 3 0RF Dose Instruction: INJECT 1 MG SUBCUTANEOUSLY ONCE A WEEK THEN START THE 2 MG DOSE Rx Instructions: INJECT 1 MG SUBCUTANEOUSLY ONCE A WEEK THEN START THE 2 MG DOSE Ozempic 2 mg/dose (8 mg/3 mL) pen injector See Rx Instructions .ROUTE .COMPLEX Qty: 3 0RF Dose Instruction: INJECT 2 MG SUB-Q EVERY 7 DAYS Rx Instructions: INJECT 2 MG SUB-Q EVERY 7 DAYS Repatha SureClick 140 mg/mL pen injector 140 mg SUBCUT Q14D 30 Days Qty: 3 0RF metformin 500 mg tablet extended release 24 hr See Rx Instructions .ROUTE .COMPLEX Qty: 270 0RF Dose Instruction: TAKE 1 TABLET BY MOUTH THREE TIMES DAILY Rx Instructions: TAKE 1 TABLET BY MOUTH THREE TIMES DAILY Discharge Orders: Discharge ED (Routine); Ordered 01/02/25 Ordered By: Maury Treadwell Referrals: Italo Torres [Primary Care Provider, Family Practice] Patient Instructions: Patient Portal & [place] Instructions, Acute Headache (ED) Activity Restrictions/Additional Instructions: You were seen in the emergency department for a headache after inhaling toxic fumes, your brain CT was negative and your headache improved with treatment, I recommend you hydrate and avoid alcohol, take Tylenol or Motrin as needed for your pain, return to the emergency department if your symptoms acutely worsen or if you were to develop any pain or swelling of your eyes or throat, or any neurologic signs or symptoms. Print Language: Nigerian Coding Level of Care Code ED Insulation Worker Apprentice for Fredis Stacy
[2025-01-02 16:36] LABS: Hematocrit 38.1 % (36-47); Hemoglobin 12.10 g/dL (11.27-16.99); Mean Corpuscular HGB Conc 31.8 g/dL (30-55); Mean Corpuscular Hemoglobin 28.7 pg (27-33); Mean Corpuscular Volume 90.5 fl (85-98); Nucleated Red Blood Cells % 0 %; Platelet Count 313 10^3/cmm (157-399); Red Blood Count 4.21 10^6/uL (3.85-5.65); White Blood Count 5.73 10^3/uL (3.29-11.43)
[2025-01-02 16:57] LABS: Alanine Aminotransferase 16 U/L (0-33); Albumin Level 4.7 g/dL (3.5-5.2); Alkaline Phosphatase 44 U/L (35-105); Anion Gap 14.9 (5-19); Aspartate Amino Transferase 19 U/L (0-32); Blood Urea Nitrogen 13 mg/dL (6-20); Calcium 10.1 mg/dL (8.5-10.5); Carbon Dioxide 27 mmol/L (22-29); Chloride 101 mmol/L (98-107); Creatinine Clr Calc Pharmacy 58.2469; Globulin 2.9 g/dL (1.3-4.6); Glucose 78 mg/dL (65-115); Osmolality Calculated 287 mOsm/kg (285-295); Potassium 3.9 mmol/L (3.5-5.1); Sodium 139 mmol/L (136-145); Total Protein 7.6 g/dL (6.6-8.7)
[2025-01-02] MEDS: metoclopramide 5 mg/mL SDV 2 mL 10 MG IVP (16:57)
[2025-01-02] MEDS: diphenhydrAMINE 50 mg/mL SDV 1mL 25 MG IVP (16:57)
[2025-01-02] MEDS: magnesium sulfate premix 1 GM/100 ML PIGGYBACK IV (16:57)
== END 2025-01-02 18:05 | disposition home or self-care (01) ==
PROVIDERS: Emergency Provider Student in an Organized Health Care Education/Training Program; PCP Family Medicine
DX: G44.209 Tension-type headache, unspecified, not intractable (principal); Z57.5 Occupational exposure to toxic agents in other industries; Z79.82 Long term (current) use of aspirin; E11.42 Type 2 diabetes mellitus with diabetic polyneuropathy; Z79.84 Long term (current) use of oral hypoglycemic drugs
CPT/HCPCS: 36415; 70450; 80053; 85025; 96365; 96375; 99285; J1200; J1885; J2765; J3475; J7030